=== PATIENT | female | born 1955 | race Two or more races ===

== ENCOUNTER 2022-02-17 11:19 | Emergency (ER) | payer OTHER ==
[~2022-02-17] VITALS: Ht 162.6 cm; Wt 65.8 kg
[2022-02-17] MEDS ORDERED: CALCIUM500 M2 PO (11:29)
[2022-02-17] MEDS ORDERED: COZAAR25 MG PO (11:29)
== END 2022-02-17 14:06 | disposition home or self-care (01) ==
LOC: ER 11:19
DX: M25.572 Pain in left ankle and joints of left foot (principal); R60.0 Localized edema